=== PATIENT | male | born 2000 | race Caucasian/White ===

== ENCOUNTER 2019-11-29 09:31 | Outpatient (CLI) | payer BC, SELFPAY ==
[2019-11-30 18:00] LABS: COVID-19 RT-PCR Result NEGATIVE (Negative)
== END 2019-11-29 09:51 ==
PROVIDERS: PCP Nurse Practitioner Adult Health; Visit Provider Family Medicine
DX: R50.9 Fever, unspecified (principal)
CPT/HCPCS: U0003